=== PATIENT | male | born 1945 | race Hispanic/Latino ===

== ENCOUNTER 2016-11-27 01:18 | Emergency (ER) | payer MEDICARE ==
[2016-11-27 02:20] VITALS: BP 131/110
[2016-11-27 03:27] LABS: Hematocrit 36.7 % (35.5-45.6); Hemoglobin 11.6 gm/dl (11.8-15.2); Mean Corpuscular HGB Conc 32 % (32-34); Mean Corpuscular Hemoglobin 35 pg (28-32); Platelet Count 161 K/mm3 (140-440); Red Blood Count 3.31 M/mm3 (3.65-5.03); Red Cell Distribution Width 16.8 % (13.2-15.2); White Blood Count 9.6 K/mm3 (4.5-11.0)
[2016-11-27 03:28] LABS: Mean Corpuscular Volume 111 fl (84-94)
[2016-11-27 03:44] LABS: Alanine Aminotransferase 104 units/L (7-56); Albumin 3.2 g/dL (3.9-5); Albumin/Globulin Ratio 0.7 %; Alkaline Phosphatase 131 units/L (35-129); Bilirubin,Total 3.9 mg/dL (0.1-1.2); Blood Urea Nitrogen 30 mg/dL (9-20); Calcium 9.2 mg/dL (8.4-10.2); Chloride 74.5 mmol/L (98-107); Glucose 96 mg/dL (75-100); Lipase 245 units/L (13-60); Potassium 4.6 mmol/L (3.6-5.0); Sodium 128 mmol/L (137-145); Total Protein 7.5 g/dL (6.3-8.2)
[2016-11-27 03:49] LABS: Anion Gap 50 mmol/L
[2016-11-27 03:53] LABS: Carbon Dioxide 8 mmol/L (22-30)
[2016-11-27] MEDS ORDERED: MAGNESIUM SULFATE ONE ×2 (05:22→06:20)
--- NOTE | 2016-11-27 05:51 | Emergency Department Report ---
HPI - General Chief Complaint: Abdominal Pain Time Seen by Provider: 11/27/16 05:23 - HPI HPI: Room 20 Notified by charge nurse that the patient was found unresponsive in triage at approximately 04:44. Patient was brought back to room 20 pulseless and apneic. The patient was intubated by myself without medication. Once a peripheral IV was unable to be obtained, a right femoral CVL was placed by myself. ACLS protocols were continued. The patient was defibrillated numerous times as well as maxed out on antiarrhythmics. After approximately one hour of ACLS the patient remained asystolic without return of spontaneous circulation Location: Cardiovascular system Duration: [see above] Quality: Asystole Severity: Severe Modifying factors: [see above] Context: [see above] Mode of transportation: Unknown ED Past Medical Hx - Past Medical History Previous Medical History?: No Additional medical history: SLEEP APNEA(ON CPAP) - Surgical History Additional Surgical History: PT NOR FRIEND ARE ABLE GIVE PT INFO - Family History Family history: no significant - Social History Smoking Status: Unknown if ever smoked Substance Use Type: Alcohol ED Review of Systems ROS: Stated complaint: BODY SORES/STOMACH PAIN Other details as noted in HPI Comment: Unobtainable due to pts medical conditions Physical Exam - Physical Exam Vital Signs: Vital Signs 11/27/16 01:58 Temperature 98.5 F Pulse Rate 117 H Respiratory 22 Rate Blood Pressure 131/110 [Right] O2 Sat by Pulse 100 Oximetry Physical Exam: GENERAL: The patient is well-developed well-nourished male lying on stretcher applicant pulseless. [] HEENT: Normocephalic. Moist mucous membranes, serous fluid in oropharynx respiratory intubation NECK: Trachea midline CHEST/LUNGS: No spontaneous respirations. Breath sounds equal bilaterally after intubation by myself HEART/CARDIOVASCULAR: No heart sounds. Asystole on monitor ABDOMEN: Abdomen is soft, SKIN: There is no diaphoresis. NEURO: GCS 3 MUSCULOSKELETAL: There is no obvious deformity seen ED Course Vital Signs 11/27/16 01:58 Temperature 98.5 F Pulse Rate 117 H Respiratory 22 Rate Blood Pressure 131/110 [Right] O2 Sat by Pulse 100 Oximetry - Intubation Time Out Performed: No Sedative: none Laryngoscope: Edne Size: 3 ET Tube Size: 8 Tube Secured Depth (cm): 24 Tube Secured Location: lips Tube Placement Confirmation: visualized tube passing t, equal breath sounds bilat, no breath sounds over epi Patient Tolerated Procedure: no complications Intubation Complications: none ED Medical Decision Making - Lab Data Result diagrams: 11/27/16 03:07 11/27/16 03:07 Laboratory Tests 11/27/16 11/27/16 03:07 03:07 WBC 9.6 RBC 3.31 L Hgb 11.6 L Hct 36.7 MCV 111 H MCH 35 H MCHC 32 RDW 16.8 H Plt Count 161 Sodium 128 L Potassium 4.6 Chloride 74.5 L Carbon Dioxide 8 L* Anion Gap 50 BUN 30 H Creatinine 0.8 Estimated GFR > 60 BUN/Creatinine Ratio 37.50 Glucose 96 Calcium 9.2 Total Bilirubin 3.9 H AST 334 H ALT 104 H Alkaline Phosphatase 131 H Total Protein 7.5 Albumin 3.2 L Albumin/Globulin Ratio 0.7 Lipase 245 H - Differential Diagnosis cardiac arrest Critical care attestation.: If time is entered above; I have spent that time in minutes in the direct care of this critically ill patient, excluding procedure time. ED Disposition Clinical Impression: Cardiac arrest Disposition: Is pt being admited?: No Does the pt Need Aspirin: No Condition: Poor Referrals: PRIMARY CARE, [Primary Care Provider] - 3-5 Days Time of Disposition: 05:47 (patient ) Blank Doc - Documentation Documentation: Central line note Consent was unobtainable Location: Right femoral The site was prepped and draped in a sterile fashion Site was not anesthetized as patient was pulseless and the procedure was time critical Landmarks identified and needle introduced until return of dark nonpulsatile blood Blood was obtained on first attempt Guidewire introduced using Seldinger technique and triple lumen catheter placed over guidewire There was blood return from all 3 ports Catheter was secured to patient by adhesive The patient tolerated procedure well There were no complications
[2016-11-27] MEDS ORDERED: CORDARONE 900 MG in D5W 482 ML IV SCH (06:00)
[2016-11-27 06:06] LABS: Basophils % (Manual) 0 % (0.0-1.8); Blastocytes % (Manual) 0 %; Eosinophils % (Manual) 0 % (0.0-4.3); Macrocytosis 1+
[2016-11-27 06:09] LABS: Anisocytosis 1+; Diff Status Complete
[2016-11-27] MEDS ORDERED: SODIUM BICARBONATE IV ONE (10:52)
[2016-11-27] MEDS ORDERED: XYLOCAINE/D5W 2GM/500ML DRIP IV ONE (10:52)
[2016-11-27] MEDS ORDERED: MAGNESIUM SULFATE 2GM/50ML IV ONE (10:52)
[2016-11-27] MEDS ORDERED: CORDARONE IV ONE (10:52)
[2016-11-27] MEDS ORDERED: XYLOCAINE CARDIAC IV ONE (10:52)
[2016-11-27] MEDS ORDERED: ADRENALIN ONE (10:52)
== END 2016-11-27 11:15 ==
LOC: ED 01:18
DX: I46.9 Cardiac arrest, cause unspecified (principal); G47.30 Sleep apnea, unspecified
CPT/HCPCS: 31500; 36415; 36556; 80053; 83690; 85007; 85025; 99285; J0171; J0282; J2001; J3475; J7060